=== PATIENT | male | born 1995 | race Caucasian/White ===

== ENCOUNTER 2016-06-09 07:13 | Emergency (ER) | payer OTHER ==
--- NOTE | 2016-06-09 07:38 | EDDOCDS ---
Physician Documentation [facility] Name: Mehdi Rios Age: 20 yrs Sex: Male : 1995 Arrival Date: 06/09/2016 Time: 07:13 Bed I2 / M2 Private MD: Disposition: 06/09/16 07:30 Discharged to Home/Self Care. Impression: Concussion. - Condition is Stable. - Discharge Instructions: Head Injury, Adult. - Medication Reconciliation form. - Follow up: Emergency Department; When: As needed. Follow up: Yajaira Victoria [facility]; When: Call to arrange an appointment; Reason: Wound/Symptom Recheck, Recheck today's complaints, Worsening of conditions, Continuance of care. - Problem is new. - Symptoms are unchanged. Historical: - Allergies: no known allergies; - Home Meds: 1. Concerta 54 mg Oral tr24 1 tab once daily 2. Ritalin 10 mg Oral tab 1 tab daily - PMHx: ADHD; - PSHx: wisdom teeth; - Social history: Smoking status: Electronic cigarettes No barriers to communication noted, The patient speaks fluent Ukrainian, Speaks appropriately for age. - Family history: Not pertinent. - : The pt / caregiver states he / she is not on anticoagulants. Home medication list is obtained from the patient. - Exposure Risk Screening:: None identified. Vital Signs: 06/09 07:23 BP 131 / 80; Pulse 86; Resp 16; Temp 98.1(TE); Pulse Ox 98% on R/A; Weight 90.26 kg / mlb1 198.99 lbs (R); Height 5 ft. 8 in. (172.72 cm) (R); Pain 7/10; 07:23 Body Mass Index 30.26 (90.26 kg, 172.72 cm) mlb1 Simpson Coma Score: 07:19 Eye Response: spontaneous(4). Verbal Response: oriented(5). Motor Response: obeys mlb1 commands(6). Total: 15. Signatures: Brody Kang RN RN mlb1 [address] PA-C PAJuly cc10 MTDD
--- NOTE | 2016-06-09 07:38 | EDDOCDS ---
Nurse's Notes [facility] Name: Mehdi Rios Age: 20 yrs Sex: Male : 1995 Arrival Date: 06/09/2016 Time: 07:13 Bed I2 / M2 Private MD: Diagnosis: Concussion Presentation: 06/09 07:19 Presenting complaint: Patient states: Tripped by a dog fell hit head with LOC. unknown mlb1 LOC duration. Mechanism of Injury: resulted from a fall. Adult Sepsis Screening: The patient does not have new or worsening altered mentation. Patient's respiratory rate is less than 22. Systolic blood pressure is greater than 100. Patient has a qSOFA score of 0- Negative Sepsis Screen. Suicide/Homicide risk assessment- the patient denies having any suicidal and/or homicidal ideations and does not present with any other emotional, behavioral or mental health complaints. Status: The patient is an active duty patient service coordinator. Transition of care: patient was not received from another setting of care. 07:19 Acuity: EMMA Level 3 mlb1 07:19 Method Of Arrival: Walkin/Carried/Asstd mlb1 Triage Assessment: 07:23 General: Appears in no apparent distress, Behavior is cooperative. Pain: Location: head mlb1 Pain currently is 7 out of 10 on a pain scale. Pt Declines HIV testing. Neurological: Level of Consciousness is awake, alert, Oriented to person, place, time, Pupils are PERRLA, Reports headache. Historical: - Allergies: no known allergies; - Home Meds: 1. Concerta 54 mg Oral tr24 1 tab once daily 2. Ritalin 10 mg Oral tab 1 tab daily - PMHx: ADHD; - PSHx: wisdom teeth; - Social history: Smoking status: Electronic cigarettes No barriers to communication noted, The patient speaks fluent Spanish, Speaks appropriately for age. - Family history: Not pertinent. - : The pt / caregiver states he / she is not on anticoagulants. Home medication list is obtained from the patient. - Exposure Risk Screening:: None identified. Screenin:36 Screening information is obtained from the patient. Fall risk: No risks identified. mlb1 Assistance ADL's: requires no assistance with activities of daily living. Abuse/DV Screen: The patient / caregiver reports he/she is: not in a situation that causes fear, pain or injury. Nutritional screening: No deficits noted. Advance Directives: Currently, there is no health care proxy. home support is adequate. Assessment: 07:35 General: Appears in no apparent distress, Behavior is appropriate for age, cooperative. mlb1 Pain: Location: head Pain currently is 7 out of 10 on a pain scale. Neurological: Level of Consciousness is awake, alert, Oriented to person, place, time, Pupils are PERRLA. Derm: No deficits noted. Vital Signs: 07:23 BP 131 / 80; Pulse 86; Resp 16; Temp 98.1(TE); Pulse Ox 98% on R/A; Weight 90.26 kg mlb1 (R); Height 5 ft. 8 in. (172.72 cm) (R); Pain 7/10; 07:23 Body Mass Index 30.26 (90.26 kg, 172.72 cm) mlb1 Vitals: 07:23 Log In Time: June 09, 2016 at 07:13. mlb1 Alexandra Coma Score: 07:19 Eye Response: spontaneous(4). Verbal Response: oriented(5). Motor Response: obeys mlb1 commands(6). Total: 15. ED Course: 07:15 Patient visited by Mariposa Zapata. gjb 07:15 Patient moved to Waiting gjb 07:19 Patient visited by Brody Kang RN. mlb1 07:21 Triage Initiated mlb1 07:[address] PA-C is PHCP. cc10 07:22 Leyda Ruffin MD is Attending Physician. cc10 07:24 Patient visited by Brody Kang RN. mlb1 07:24 Patient moved to / M2 mlb1 07:[address] PA-C. cc10 07:[address] PA-C. cc10 07:30 [facility] cc10 07:36 No IV's were initiated during this patient's visit. No procedures done that require mlb1 assistance. 07:37 Patient visited by Brody Kang RN. mlb1 07:37 The patient / caregiver is instructed regarding the plan of care and ED course. mlb1 Order Results: There are currently no results for this order. Outcome: 07:30 Discharge ordered by Provider. cc10 07:36 Discharge Assessment: Patient awake, alert and oriented x 3. No cognitive and/or mlb1 functional deficits noted. Patient verbalized understanding of disposition instructions. patient administered narcotics - no. The following High Risk Discharge criteria are identified: None. Discharged to home ambulatory, with significant other. Condition: good. Discharge instructions given to patient, Instructed on discharge instructions, follow up and referral plans. Demonstrated understanding of instructions, Pt was receptive of discharge instructions/ teaching. No special radiology studies were completed. Property sent home with patient. 07:37 Patient left the ED. mlb1 Signatures: Brody Kang RN RN mlb1 [address] PA-C PA-C cc10 Mariposa Zapata MTDOusmane
--- NOTE | 2016-06-11 08:38 | EDDOCDS ---
Physician Documentation [facility] Name: Mehdi Rios Age: 20 yrs Sex: Male : 1995 Arrival Date: 06/09/2016 Time: 07:13 Bed I2 / M2 Private MD: Disposition: 06/09/16 07:30 Discharged to Home/Self Care. Impression: Concussion. - Condition is Stable. - Discharge Instructions: Head Injury, Adult. - Medication Reconciliation form. - Follow up: Emergency Department; When: As needed. Follow up: Yajaira Victoria [facility]; When: Call to arrange an appointment; Reason: Wound/Symptom Recheck, Recheck today's complaints, Worsening of conditions, Continuance of care. - Problem is new. - Symptoms are unchanged. Historical: - Allergies: no known allergies; - Home Meds: 1. Concerta 54 mg Oral tr24 1 tab once daily 2. Ritalin 10 mg Oral tab 1 tab daily - PMHx: ADHD; - PSHx: wisdom teeth; - Social history: Smoking status: Electronic cigarettes No barriers to communication noted, The patient speaks fluent Upper Sorbian, Speaks appropriately for age. - Family history: Not pertinent. - : The pt / caregiver states he / she is not on anticoagulants. Home medication list is obtained from the patient. - Exposure Risk Screening:: None identified. Vital Signs: 06/09 07:23 BP 131 / 80; Pulse 86; Resp 16; Temp 98.1(TE); Pulse Ox 98% on R/A; Weight 90.26 kg / mlb1 198.99 lbs (R); Height 5 ft. 8 in. (172.72 cm) (R); Pain 7/10; 07:23 Body Mass Index 30.26 (90.26 kg, 172.72 cm) mlb1 Alexandra Coma Score: 07:19 Eye Response: spontaneous(4). Verbal Response: oriented(5). Motor Response: obeys mlb1 commands(6). Total: 15. MDM: 07:45 Financial registration complete. hs2 07:46 [facility] Payment Agreement was scanned into [employer] and attached to record. hs2 13:48 T-Sheet-- Draft Copy was scanned into [employer] and attached to record. gb Signatures: Ailin Boyle, Reg Reg Brody Sauceda RN RN mlb1 [address] PAFlorenceC PA-C cc10 Marian Patel, Reg Reg hs2 The chart was reviewed and I authenticate all verbal orders and agree with the evaluation and treatment provided.Attachments: 07:46 [facility] Payment Agreement hs2 13:48 T-Sheet-- Draft Copy gb Chart Complete MTDD
--- NOTE | 2016-06-11 08:38 | EDDOCDS ---
Nurse's Notes [facility] Name: Mehdi Rios Age: 20 yrs Sex: Male : 1995 Arrival Date: 06/09/2016 Time: 07:13 Bed I2 / M2 Private MD: Diagnosis: Concussion Presentation: 06/09 07:19 Presenting complaint: Patient states: Tripped by a dog fell hit head with LOC. unknown mlb1 LOC duration. Mechanism of Injury: resulted from a fall. Adult Sepsis Screening: The patient does not have new or worsening altered mentation. Patient's respiratory rate is less than 22. Systolic blood pressure is greater than 100. Patient has a qSOFA score of 0- Negative Sepsis Screen. Suicide/Homicide risk assessment- the patient denies having any suicidal and/or homicidal ideations and does not present with any other emotional, behavioral or mental health complaints. Status: The patient is an active duty business services coordinator. Transition of care: patient was not received from another setting of care. 07:19 Acuity: EMMA Level 3 mlb1 07:19 Method Of Arrival: Walkin/Carried/Asstd mlb1 Triage Assessment: 07:23 General: Appears in no apparent distress, Behavior is cooperative. Pain: Location: head mlb1 Pain currently is 7 out of 10 on a pain scale. Pt Declines HIV testing. Neurological: Level of Consciousness is awake, alert, Oriented to person, place, time, Pupils are PERRLA, Reports headache. Historical: - Allergies: no known allergies; - Home Meds: 1. Concerta 54 mg Oral tr24 1 tab once daily 2. Ritalin 10 mg Oral tab 1 tab daily - PMHx: ADHD; - PSHx: wisdom teeth; - Social history: Smoking status: Electronic cigarettes No barriers to communication noted, The patient speaks fluent Icelandic, Speaks appropriately for age. - Family history: Not pertinent. - : The pt / caregiver states he / she is not on anticoagulants. Home medication list is obtained from the patient. - Exposure Risk Screening:: None identified. Screenin:36 Screening information is obtained from the patient. Fall risk: No risks identified. mlb1 Assistance ADL's: requires no assistance with activities of daily living. Abuse/DV Screen: The patient / caregiver reports he/she is: not in a situation that causes fear, pain or injury. Nutritional screening: No deficits noted. Advance Directives: Currently, there is no health care proxy. home support is adequate. Assessment: 07:35 General: Appears in no apparent distress, Behavior is appropriate for age, cooperative. mlb1 Pain: Location: head Pain currently is 7 out of 10 on a pain scale. Neurological: Level of Consciousness is awake, alert, Oriented to person, place, time, Pupils are PERRLA. Derm: No deficits noted. Vital Signs: 07:23 BP 131 / 80; Pulse 86; Resp 16; Temp 98.1(TE); Pulse Ox 98% on R/A; Weight 90.26 kg mlb1 (R); Height 5 ft. 8 in. (172.72 cm) (R); Pain 7/10; 07:23 Body Mass Index 30.26 (90.26 kg, 172.72 cm) mlb1 Vitals: 07:23 Log In Time: June 09, 2016 at 07:13. mlb1 Alexandra Coma Score: 07:19 Eye Response: spontaneous(4). Verbal Response: oriented(5). Motor Response: obeys mlb1 commands(6). Total: 15. ED Course: 07:15 Patient visited by Mariposa Zapata. gjb 07:15 Patient moved to Waiting gjb 07:19 Patient visited by Brody Kang RN. mlb1 07:21 Triage Initiated mlb1 07:[address] [facility]C [facility] cc10 07:22 Leyda Ruffin MD is Attending Physician. cc10 07:24 Patient visited by Brody Kang RN. mlb1 07:24 Patient moved to / M2 mlb1 07:[address] PA-C. cc10 07:[address] PA-C. cc10 07:30 [facility] cc10 07:36 No IV's were initiated during this patient's visit. No procedures done that require mlb1 assistance. 07:37 Patient visited by Brody Kang, KAI. mlb1 07:37 The patient / caregiver is instructed regarding the plan of care and ED course. mlb1 07:42 Patient name changed from Mehdi\S\\S\Rios\S\ to Mehdi\S\Jun\S\Oakley. EDMS 07:46 [facility] Payment Agreement was scanned into [employer] and attached to record. hs2 13:48 T-Sheet-- Draft Copy was scanned into [employer] and attached to record. gb Order Results: There are currently no results for this order. Outcome: 07:30 Discharge ordered by Provider. cc10 07:36 Discharge Assessment: Patient awake, alert and oriented x 3. No cognitive and/or mlb1 functional deficits noted. Patient verbalized understanding of disposition instructions. patient administered narcotics - no. The following High Risk Discharge criteria are identified: None. Discharged to home ambulatory, with significant other. Condition: good. Discharge instructions given to patient, Instructed on discharge instructions, follow up and referral plans. Demonstrated understanding of instructions, Pt was receptive of discharge instructions/ teaching. No special radiology studies were completed. Property sent home with patient. 07:37 Patient left the ED. mlb1 Signatures: Dispatcher [employer] EDKS Ailin Boyle, Reg Reg gb Brody Kang RN RN mlb1 [address] PA-C PAJuly cc10 Mariposa Zapata b Marian Patel, Reg Reg hs2 Chart Complete MTDOusmane
--- NOTE | 2016-06-11 08:38 | EDDOCDS ---
Physician Documentation [facility] Name: Mehdi Rios Age: 20 yrs Sex: Male : 1995 Arrival Date: 06/09/2016 Time: 07:13 Bed I2 / M2 Private MD: Disposition: 06/09/16 07:30 Discharged to Home/Self Care. Impression: Concussion. - Condition is Stable. - Discharge Instructions: Head Injury, Adult. - Medication Reconciliation form. - Follow up: Emergency Department; When: As needed. Follow up: Yajaira Victoria [facility]; When: Call to arrange an appointment; Reason: Wound/Symptom Recheck, Recheck today's complaints, Worsening of conditions, Continuance of care. - Problem is new. - Symptoms are unchanged. Historical: - Allergies: no known allergies; - Home Meds: 1. Concerta 54 mg Oral tr24 1 tab once daily 2. Ritalin 10 mg Oral tab 1 tab daily - PMHx: ADHD; - PSHx: wisdom teeth; - Social history: Smoking status: Electronic cigarettes No barriers to communication noted, The patient speaks fluent Vietnamese, Speaks appropriately for age. - Family history: Not pertinent. - : The pt / caregiver states he / she is not on anticoagulants. Home medication list is obtained from the patient. - Exposure Risk Screening:: None identified. Vital Signs: 06/09 07:23 BP 131 / 80; Pulse 86; Resp 16; Temp 98.1(TE); Pulse Ox 98% on R/A; Weight 90.26 kg / mlb1 198.99 lbs (R); Height 5 ft. 8 in. (172.72 cm) (R); Pain 7/10; 07:23 Body Mass Index 30.26 (90.26 kg, 172.72 cm) mlb1 Alexandra Coma Score: 07:19 Eye Response: spontaneous(4). Verbal Response: oriented(5). Motor Response: obeys mlb1 commands(6). Total: 15. MDM: 07:45 Financial registration complete. hs2 07:46 [facility] Payment Agreement was scanned into [employer] and attached to record. hs2 13:48 T-Sheet-- Draft Copy was scanned into [employer] and attached to record. gb Signatures: Ailin Boyle, Reg Reg Brody Sauceda RN RN mlb1 [address] PAFlorenceC PA-C cc10 Marian Patel, Reg Reg hs2 The chart was reviewed and I authenticate all verbal orders and agree with the evaluation and treatment provided.Attachments: 07:46 [facility] Payment Agreement hs2 13:48 T-Sheet-- Draft Copy gb Chart Complete MTDD
== END 2016-06-09 07:37 | disposition home or self-care (01) ==
LOC: M ED 07:13
DX: S06.0X9A Concussion with loss of consciousness of unspecified duration, initial encounter (principal); W10.9XXA Fall (on) (from) unspecified stairs and steps, initial encounter; Y92.019 Unspecified place in single-family (private) house as the place of occurrence of the external cause; Y93.9 Activity, unspecified; F90.9 Attention-deficit hyperactivity disorder, unspecified type; Z72.0 Tobacco use; Z79.899 Other long term (current) drug therapy

== ENCOUNTER 2016-09-02 07:38 | Emergency (ER) | payer OTHER ==
[~2016-09-02] VITALS: Ht 172.7 cm; Wt 97.5 kg
[2016-09-02] MEDS ORDERED: KETOROLAC 30 MG/ML VIAL (J1885) IV ONE (09:00)
[2016-09-02] MEDS ORDERED: diphenhydrAMINE 25 MG CAP PO ONE (09:00)
[2016-09-02] MEDS ORDERED: METOCLOPRAMIDE 10 MG TAB PO ONE (09:00)
[2016-09-02] MEDS ORDERED: KETOROLAC TROMETHAMINE 10 MG TAB PO ONE (09:15)
[2016-09-02 10:41] VITALS: BP 129/83
--- NOTE | 2016-09-02 18:59 | ECGEPIP ---
Stationary ECG Study [facility] - ED Test Date: 2016-09-02 Pat Name: HONG NDIAYE Department: Room: - Gender: M Snuff Maker: sania : 1995 Requested By: JAMIE Pradhan Order Number: [id number] Reading MD: Mendez Sanchez Measurements Intervals [place] Rate: 61 P: -6 DE: 153 QRS: 24 QRSD: 103 T: 23 QT: 396 QTc: 400 Interpretive Statements SINUS RHYTHM WITH SINUS ARRHYTHMIA INC. RBBB NO PRIORS Electronically Signed On 09-02-2016 18:59:34 EDT by Mendez Sanchez
== END 2016-09-02 10:42 | disposition home or self-care (01) ==
LOC: M ED 08:28
DX: R51 Headache (principal); I45.10 Unspecified right bundle-branch block; I49.9 Cardiac arrhythmia, unspecified; Z87.820 Personal history of traumatic brain injury; F90.9 Attention-deficit hyperactivity disorder, unspecified type; Z79.899 Other long term (current) drug therapy; Z87.891 Personal history of nicotine dependence

== ENCOUNTER 2017-03-22 07:19 | Emergency (ER) | payer OTHER ==
[~2017-03-22] VITALS: Ht 175.3 cm; Wt 90.9 kg
[2017-03-22] MEDS ORDERED: ONDANSETRON 4 MG ORAL DISINTEGRATING TAB (S0181) PO ONE (08:15)
[2017-03-22] MEDS ORDERED: ZOFR4TAB3 PO (09:12)
[2017-03-22 09:21] VITALS: BP 121/71
== END 2017-03-22 09:22 | disposition home or self-care (01) ==
LOC: M ED 07:19
DX: A08.4 Viral intestinal infection, unspecified (principal); F90.9 Attention-deficit hyperactivity disorder, unspecified type; Z87.820 Personal history of traumatic brain injury; F17.210 Nicotine dependence, cigarettes, uncomplicated

== ENCOUNTER 2017-07-06 11:17 | Emergency (ER) | payer OTHER | END 2017-07-06 12:40 | disposition home or self-care (01) | LOC: M ED 11:17 | DX: S76.112A Strain of left quadriceps muscle, fascia and tendon, initial encounter (principal); W01.0XXA Fall on same level from slipping, tripping and stumbling without subsequent striking against object, initial encounter; Y92.59 Other trade areas as the place of occurrence of the external cause; Y99.0 Civilian activity done for income or pay; F17.210 Nicotine dependence, cigarettes, uncomplicated; Z98.890 Other specified postprocedural states | CPT/HCPCS: 73564 ==